=== PATIENT | female | born 2000 | race Caucasian/White ===

== ENCOUNTER 2021-08-15 16:59 | Emergency (ER) | payer OTHER ==
[~2021-08-15] VITALS: Ht 160 cm; Wt 74.8 kg
[2021-08-15 17:41] LABS: ABSOLUTE EOSINOPHILS 0.1 thou/uL (0.0-0.7); ABSOLUTE MONOCYTES 0.6 thou/uL (0.0-1.2); ABSOLUTE NEUTROPHILS 5.5 thou/uL (1.6-8.1); BASOPHILS 0.6 %; HEMATOCRIT 43.7 % (37.0-47.0); HEMOGLOBIN 14.7 gm/dL (12.0-15.0); LYMPHOCYTES 24.4 %; MCH 28.5 pg (26.0-34.0); MCHC 33.6 g/dL (28.0-37.0); MCV 84.9 fL (80.0-100.0); MONOCYTES 7.5 %; MPV 7.1 fl. (7.2-11.1); NUCLEATED RBCS 0 /100WBC; PLATELET COUNT* 276 thou/uL (150-400); POLYS 66.5 %; RBC 5.15 mil/uL (4.20-5.00); RDW-CV 13.3 % (10.5-14.5); WBC 8.2 thou/uL (4.0-11.0)
[2021-08-15 17:49] LABS: CALCIUM 8.4 mg/dL (8.5-10.1); CREATININE 0.9 mg/dL (0.6-1.3); POTASSIUM 3.8 mmol/L (3.5-5.1)
[2021-08-15 18:01] LABS: ALCOHOL < 10 mg/dL (<10); SALICYLATE 6.1 mg/dL (2.8-20.0)
[2021-08-15 18:12] LABS: ACETAMINOPHEN < 2 ug/mL (10-30)
[2021-08-15 19:00] VITALS: BP 91/40
== END 2021-08-15 19:00 | disposition home or self-care (01) ==
LOC: M.ERS 16:59
PROVIDERS: Emergency Medicine
DX: F43.20 Adjustment disorder, unspecified (principal); F17.210 Nicotine dependence, cigarettes, uncomplicated; Z90.89 Acquired absence of other organs